=== PATIENT | female | born 1990 | race Caucasian/White ===

== ENCOUNTER 2018-03-16 11:54 | Emergency (ER) | payer OTHER ==
[~2018-03-16] VITALS: Ht 162.5 cm; Wt 97.5 kg
[~2018-03-16 11:54] MED LIST: COLACE100 MG PO; IRON325 M1 PO; MOTRIN800 MG PO; PRENATAL1 TA1 PO
[2018-03-16] MEDS ORDERED: ZOLOFT100 MG PO (12:02)
[2018-03-16] MEDS ORDERED: NAPROSYN500 MG PO (12:03)
== END 2018-03-16 13:11 | disposition home or self-care (01) ==
LOC: ED 11:54
DX: S60.212A Contusion of left wrist, initial encounter (principal); Z79.899 Other long term (current) drug therapy; W01.0XXA Fall on same level from slipping, tripping and stumbling without subsequent striking against object, initial encounter; Y93.89 Activity, other specified; Y92.89 Other specified places as the place of occurrence of the external cause; Y99.8 Other external cause status

== ENCOUNTER → 2019-09-10 | Outpatient (CLI) | payer OTHER ==
[~2019-09-10] MED LIST changes: +CEPHALEXIN500 M1 PO; +CYCLOBENZAPRINE10 MG PO; +NAPROSYN500 MG PO; +ZOLOFT100 MG PO
[2019-09-10 10:11] LABS: ALBUMIN 3.3 gm/dl (3.1-4.5); ALKALINE PHOSPHATASE 88 U/L (45-117); BUN 14 mg/dl (7-24); CHLORIDE 106 mmol/L (98-107); CHOLESTEROL 187 mg/dL (<200); FREE T4 0.65 ng/dl (0.76-1.46); HDL CHOLESTEROL 46 mg/dl (40-60); LDL CHOLESTEROL 109 mg/dL (9-159); POTASSIUM 4.1 mmol/L (3.5-5.1); SGOT/AST 9 IU/L (3-35); SGPT/ALT 24 U/L (12-78); SODIUM 137 mmol/L (136-145); TOTAL PROTEIN 7.7 gm/dL (6.4-8.2); TRIGLYCERIDES 161 mg/dl (<150); VLDL CHOLESTEROL 32 mg/dL (6-40)
== END | disposition home or self-care (01) ==
LOC: LAB 09:04
PROVIDERS: Nurse Practitioner Primary Care
DX: Z13.220 Encounter for screening for lipoid disorders (principal); Z13.29 Encounter for screening for other suspected endocrine disorder

== ENCOUNTER 2019-09-12 19:06 | Emergency (ER) | payer OTHER ==
[~2019-09-12] VITALS: Ht 165.1 cm; Wt 95.7 kg
[~2019-09-12 19:06] MED LIST changes: -CEPHALEXIN500 M1 PO; -CYCLOBENZAPRINE10 MG PO
[2019-09-12 20:43] LABS: BILIRUBIN NEGATIVE (NEGATIVE); BLOOD 1+ (NEGATIVE); CLARITY SL CLOUDY (CLEAR); COLOR YELLOW (YELLOW); GLUCOSE NEGATIVE (NEGATIVE); KETONE NEGATIVE (NEGATIVE); LEUKO ESTERASE 1+ (NEGATIVE); NITRITE NEGATIVE (NEGATIVE); SPECIFIC GRAVITY 1.025 (1.005-1.030); UROBILINOGEN 0.2 E.U./dl (0.2-1.0)
[2019-09-12 20:51] LABS: BACTERIA 1+
[2019-09-12 20:52] LABS: MUCOUS 1+
[2019-09-12] MEDS ORDERED: CEPHALEXIN500 M1 PO (21:02)
[2019-09-12] MEDS ORDERED: CYCLOBENZAPRINE10 MG PO (21:03)
== END 2019-09-12 21:12 | disposition home or self-care (01) ==
LOC: ED 19:06
PROVIDERS: Emergency Medicine
DX: S29.012A Strain of muscle and tendon of back wall of thorax, initial encounter (principal); N39.0 Urinary tract infection, site not specified; M62.830 Muscle spasm of back; X58.XXXA Exposure to other specified factors, initial encounter; Y93.89 Activity, other specified; Y92.89 Other specified places as the place of occurrence of the external cause; Y99.8 Other external cause status

== ENCOUNTER → 2020-03-16 | Outpatient (CLI) | payer OTHER ==
[~2020-03-16] MED LIST changes: +CEPHALEXIN500 M1 PO; +CYCLOBENZAPRINE10 MG PO
[2020-03-16 09:08] LABS: FREE T4 0.87 ng/dl (0.76-1.46)
== END | disposition home or self-care (01) ==
LOC: LAB 07:38
PROVIDERS: Nurse Practitioner Primary Care
DX: E03.9 Hypothyroidism, unspecified (principal)

== ENCOUNTER → 2020-06-16 | Outpatient (CLI) | payer OTHER | END | disposition home or self-care (01) | LOC: LAB 07:59 | DX: E03.9 Hypothyroidism, unspecified (principal) ==